=== PATIENT | female | born 1990 | race African-American/Black ===

== ENCOUNTER 2020-02-19 13:13 | Inpatient (IN) | payer OTHER ==
[~2020-02-19 13:13] MED LIST: KEFLEX500 MG PO
[2020-02-19 14:10] LABS: BASOPHIL 0.2 % (0-2); EOSINOPHIL 0.2 % (0-5); HCT 36.9 % (37.0-47.0); HGB 10.8 g/dl (12.5-16.0); LYMPHOCYTE 22.1 % (15-48); MCH 24.4 pg (25.0-31.0); MCHC 29.3 g/dL (32.0-36.0); MCV 83.5 fL (78.0-100.0); MPV 11.8 fL (6.0-9.5); NEUTROPHIL 66.9 % (41-80); NRBC 0.6; PLT 204 K/uL (150-400); RBC 4.42 M/uL (4.20-5.40); RDW 17.6 % (11.5-14.0); WBC 6.3 K/uL (4.0-10.5)
[2020-02-19 14:26] LABS: ALBUMIN 2.9 g/dL (3.4-5.0); BILIRUBIN - TOTAL 0.8 mg/dL (0.2-1.0); BUN/CREAT RATIO (CALC) 8.3 RATIO; CREATININE 0.72 mg/dL (0.51-0.95); GLOBULIN (CALCULATION) 5.4 g/dL; POTASSIUM 3.8 mmol/L (3.5-5.1); TOTAL PROTEIN 8.3 g/dL (6.4-8.2)
[2020-02-19 14:36] LABS: LACTIC ACID 0.3 mmol/L (0.4-1.9)
[2020-02-19 16:05] LABS: INR 1.11 (0.9-1.2); PROTHROMBIN TIME 13.6 SECONDS (11.4-13.6)
[2020-02-19 16:06] LABS: PTT 39.9 SECONDS (22.2-34.7)
[2020-02-19 16:21] LABS: PRO-BNP 17 pg/mL (<125)
[2020-02-20 09:46] LABS: BASOPHIL 0.2 % (0-2); EOSINOPHIL 0 % (0-5); HGB 11.4 g/dl (12.5-16.0); MCH 24.8 pg (25.0-31.0); MCHC 28.5 g/dL (32.0-36.0); MONOCYTE 3.2 % (0-12); MPV 11.7 fL (6.0-9.5); NEUTROPHIL 68.9 % (41-80); NRBC 0.9; PLT 204 K/uL (150-400); RDW 17.8 % (11.5-14.0); WBC 4.4 K/uL (4.0-10.5)
[2020-02-20 10:02] LABS: BUN/CREAT RATIO (CALC) 13.6 RATIO; CREATININE 0.59 mg/dL (0.51-0.95); POTASSIUM 4.6 mmol/L (3.5-5.1)
--- NOTE | 2020-02-22 01:29 | NUR ---
PT C/O SOA. RESP NOTIFIED, HARDNESS INSPECTOR NOTIFIED. BREATHING TREATMENT GIVEN. PT C/O HEADACHE. PRN TYLENOL GIVEN. PT IV D/CD DUE TO INFILTRATION, CATH INTACT WHEN REMOVED. NEW IV STARTED IN LEFT ARM. 2 ATTEMPTS. 20 GUAGE. FLUSHES WITH OUT DIFFICULTY, DRESSING APPLIED. WILL CONTINUE TO MONITOR
--- NOTE | 2020-02-22 01:48 | NUR ---
PT SATS 85-87% THIS NURSE WENT INTO PT ROOM, PT HAD VENTURI MASK OFF AT THIS TIME. THIS NURSE REMINDED PT TO KEEP VENTURI MASK ON AND EDUCATED IMPORTANCE OF VENTURI MASK TO HELP BREATHE. PT VERBALIZED UNDERSTANDING.
--- NOTE | 2020-02-22 17:47 | NUR ---
MD DR. BRAMBILA NOTIFIED OF PATIENT HEART RATE OF 146, MD STATED TO WATCH PATIENT
[2020-02-23 04:42] LABS: BASOPHIL 0.1 % (0-2); EOSINOPHIL 0 % (0-5); HCT 36.5 % (37.0-47.0); LYMPHOCYTE 19.5 % (15-48); MCH 24.3 pg (25.0-31.0); MCHC 27.4 g/dL (32.0-36.0); MCV 88.8 fL (78.0-100.0); MONOCYTE 7.9 % (0-12); MPV 11.6 fL (6.0-9.5); NEUTROPHIL 71.8 % (41-80); NRBC 0.3; PLT 265 K/uL (150-400); RBC 4.11 M/uL (4.20-5.40); RDW 17.2 % (11.5-14.0)
[2020-02-23 04:43] LABS: WBC 7.6 K/uL (4.0-10.5)
[2020-02-23 05:17] LABS: ALBUMIN 2.8 g/dL (3.4-5.0); BILIRUBIN - TOTAL 0.4 mg/dL (0.2-1.0); C-REACTIVE PROTEIN 5.6 mg/dL (<=0.90); CREATININE 0.54 mg/dL (0.51-0.95); GLOBULIN (CALCULATION) 5.2 g/dL; POTASSIUM 4.6 mmol/L (3.5-5.1)
--- NOTE | 2020-02-23 13:58 | NUR ---
1335 PATIENT HR 136, O2 RANGING FROM 62% TO 75%, THIS RN ENTERED PATIENTS ROOM AND PATIENT IN BED WITH 6L NC ON. PATIENT STATED SHE JUST USED THE [facility]. TI RN INSTRUCTED PATIENT TO TAKE DEEP BREATHS. PATIENT'S O2 86-88%. PATIENT PLACED ON 50% VENTI MASK, O2 90% HR 96. MD BRAMBILA NOTIFIED OF O2 AND HR. STATED "OK." PATIENT INSTRUCTED TO CALL FOR ASSISTANCE BEFORE GETTING OUT OF BED DUE TO DECREASED O2 SAT WHEN AMBULATING. PATIENT VERBALIZED UNDERSTANDING
--- NOTE | 2020-02-23 16:12 | NUR ---
1435 O2 88-89% ON 50% VENTI MASK. MD BRAMBILA NOTIFIED. CXR AND ABG ORDERED, STATED "I WILL TRANSFER HER TO [facility] WHEN A BED BECOMES AVAILABLE"
[2020-02-24 04:37] LABS: BASOPHIL 0.2 % (0-2); EOSINOPHIL 0.1 % (0-5); LYMPHOCYTE 21.4 % (15-48); MCH 24.6 pg (25.0-31.0); MCHC 28.6 g/dL (32.0-36.0); MCV 86.2 fL (78.0-100.0); MONOCYTE 7.8 % (0-12); MPV 11.4 fL (6.0-9.5); NEUTROPHIL 69.5 % (41-80); NRBC 0; PLT 275 K/uL (150-400); RBC 4.06 M/uL (4.20-5.40); RDW 16.9 % (11.5-14.0); WBC 8.2 K/uL (4.0-10.5)
[2020-02-24 05:03] LABS: ALBUMIN 2.9 g/dL (3.4-5.0); BILIRUBIN - TOTAL 0.6 mg/dL (0.2-1.0); BUN/CREAT RATIO (CALC) 13.6 RATIO; C-REACTIVE PROTEIN 3.3 mg/dL (<=0.90); CREATININE 0.59 mg/dL (0.51-0.95); POTASSIUM 4.2 mmol/L (3.5-5.1); TOTAL PROTEIN 7.9 g/dL (6.4-8.2)
[2020-02-25 06:44] LABS: BASOPHIL 0.1 % (0-2); EOSINOPHIL 0.3 % (0-5); HCT 36.1 % (37.0-47.0); HGB 10.2 g/dl (12.5-16.0); LYMPHOCYTE 22.5 % (15-48); MCH 23.9 pg (25.0-31.0); MCHC 28.3 g/dL (32.0-36.0); MCV 84.7 fL (78.0-100.0); MPV 11.8 fL (6.0-9.5); NEUTROPHIL 67.6 % (41-80); NRBC 0; PLT 296 K/uL (150-400); RBC 4.26 M/uL (4.20-5.40); RDW 16.9 % (11.5-14.0); WBC 9.2 K/uL (4.0-10.5)
[2020-02-25 07:22] LABS: ALBUMIN 2.7 g/dL (3.4-5.0); BILIRUBIN - TOTAL 0.7 mg/dL (0.2-1.0); BUN/CREAT RATIO (CALC) 17.2 RATIO; C-REACTIVE PROTEIN 2.2 mg/dL (<=0.90); CREATININE 0.58 mg/dL (0.51-0.95); GLOBULIN (CALCULATION) 4.8 g/dL; POTASSIUM 4.2 mmol/L (3.5-5.1); TOTAL PROTEIN 7.5 g/dL (6.4-8.2)
[2020-02-25 09:08] LABS: IRON % SATURATION 23.7 %SAT (20-50)
--- NOTE | 2020-02-25 17:09 | NUR ---
02/24 Discharge is anticipated for 02/25. Referrals have been made to [facility] for trilogy and 02 at 5 L with an oximizer. Please remind patient to call [facility] upon arrival at home for delivery of concentrator and trilogy. Please send oximizer home with patient. - Report given to SISSY Ordoñez, YEMI.
--- NOTE | 2020-02-26 11:37 | NUR ---
02/26/20 02 has been delivered. Patient was informed of need to see Tiffany Stevens, PCP, before [facility] can see her. Report given to Dr. Purcell. Tootie, RN, will assist patient is scheduling PCP appointment.
[2020-02-26] MEDS ORDERED: DEXAMETHASONE 2M2 MG PO (12:54)
[2020-02-26] MEDS ORDERED: PROVENTIL HFA6.7 GM INH (12:54)
--- NOTE | 2020-02-26 15:45 | NUR ---
PT DISCHARGED VIA WHEELCHAIR WITH BOYFRIEND. 2 OXYGEN TANKS WITH HER. LEFT ON 5L OXIMIZER. GIVEN INSTRUCTIONS AND MEDS AT [facility].
== END 2020-02-26 15:25 | disposition home health service (06) | DRG 177 ==
LOC: FER 13:13 → FMS 17:27 → FTCU 02-23 16:57 → FICU 02-24 04:54 → FTCU 02-24 12:25
PROVIDERS: Emergency Medicine; Internal Medicine; Nurse Practitioner; ADMIT Internal Medicine
PROC: 8E0ZXY6 Isolation (ICD-10-PCS; principal; 2020-02-19)
PROC: XW033E5 Introduction of Remdesivir Anti-infective into Peripheral Vein, Percutaneous Approach, New Technology Group 5 (ICD-10-PCS; 2020-02-19)
DX: U07.1 COVID-19 (principal); J12.82 Pneumonia due to coronavirus disease 2019; J96.01 Acute respiratory failure with hypoxia; J96.02 Acute respiratory failure with hypercapnia; Z68.45 Body mass index [BMI] 70 or greater, adult; E66.01 Morbid (severe) obesity due to excess calories; Z86.711 Personal history of pulmonary embolism; Z79.01 Long term (current) use of anticoagulants; G47.33 Obstructive sleep apnea (adult) (pediatric); Z98.51 Tubal ligation status; Z98.890 Other specified postprocedural states
CPT/HCPCS: 36415; 36600; 71045; 71275; 80048; 80053; 82607; 82728; 82803; 83540; 83550; 83605; 83615; 83880; 84443; 84484; 85025; 85379; 85610; 85730; 86140; 87040; 93005; 94010; 94640; 94660; 94668; 96374; 96375; C9399; J0456; J0696; J1100; J1650; J1940; J2405; J7030; J7050; J8540; Q0169; Q9967; U0002

== ENCOUNTER 2020-09-21 21:34 | Emergency (ER) | payer OTHER ==
[~2020-09-21 21:34] MED LIST changes: +DEXAMETHASONE 2M2 MG PO; +PROVENTIL HFA6.7 GM INH
[2020-09-21 22:01] LABS: BASOPHIL 0.3 % (0-2); EOSINOPHIL 0.9 % (0-5); HCT 41.8 % (37.0-47.0); HGB 11.1 g/dl (12.5-16.0); LYMPHOCYTE 10.6 % (15-48); MCH 21.9 pg (25.0-31.0); MCHC 26.6 g/dL (32.0-36.0); MCV 82.6 fL (78.0-100.0); MONOCYTE 8.3 % (0-12); NRBC 0.5; PLT 237 K/uL (150-400); RBC 5.06 M/uL (4.20-5.40); WBC 11.6 K/uL (4.0-10.5)
[2020-09-21 22:22] LABS: LACTIC ACID 1.2 mmol/L (0.4-1.9)
[2020-09-21 22:28] LABS: ALBUMIN 3.2 g/dL (3.4-5.0); BILIRUBIN - TOTAL 0.9 mg/dL (0.2-1.0); BUN/CREAT RATIO (CALC) 11.6 RATIO; CREATININE 0.86 mg/dL (0.51-0.95); POTASSIUM 4.3 mmol/L (3.5-5.1); TOTAL PROTEIN 8.2 g/dL (6.4-8.2)
[2020-09-22 01:11] LABS: BILIRUBIN NEGATIVE (NEGATIVE); BLOOD TRACE-INTACT Ery/uL (NEGATIVE); CLARITY CLEAR (CLEAR); COLOR YELLOW (YELLOW); GLUCOSE (U) NORMAL (NORMAL); LEUKOCYTES NEGATIVE Leu/uL (NEGATIVE); NITRITE NEGATIVE (NEGATIVE); PROTEIN 3+ mg/dL (NEGATIVE); SPECIFIC GRAVITY >=1.030 (1.001-1.030)
[2020-09-22 01:30] LABS: AMORPHOUS URATES CRYSTALS MODERATE; BACTERIA 1+; GRANULAR CASTS MODERATE; MUCOUS MODERATE; STARCH GRANULES NOT PRESENT
== END 2020-09-22 07:53 | disposition other institution (70) ==
LOC: FER 21:34
PROVIDERS: Emergency Medicine Emergency Medical Services
DX: J18.9 Pneumonia, unspecified organism (principal); J96.01 Acute respiratory failure with hypoxia; R00.0 Tachycardia, unspecified; J44.9 Chronic obstructive pulmonary disease, unspecified; Z20.822 Contact with and (suspected) exposure to COVID-19
CPT/HCPCS: 31500; 36415; 36600; 71045; 80053; 81001; 82803; 83605; 83880; 84145; 84484; 85025; 85379; 87040; 87088; 93005; 94002; 94640; 94664; 96365; 96366; 96367; 96368; 96372; 96375; J0456; J0696; J1650; J1940; J2250; J2704; J2930; J3010; J3475; J7030; J7050; U0002

== ENCOUNTER 2020-12-15 19:36 | Inpatient (IN) | payer OTHER ==
[~2020-12-15] VITALS: Ht 162.6 cm; Wt 204.3 kg
[2020-12-15 20:43] LABS: BASOPHIL 0.3 % (0-2); EOSINOPHIL 1.1 % (0-5); HCT 37.3 % (37.0-47.0); HGB 10.2 g/dl (12.5-16.0); LYMPHOCYTE 17.3 % (15-48); MCH 24.5 pg (25.0-31.0); MCHC 27.3 g/dL (32.0-36.0); MCV 89.4 fL (78.0-100.0); MONOCYTE 7.2 % (0-12); MPV 10.7 fL (6.0-9.5); NEUTROPHIL 73.6 % (41-80); NRBC 0.4; PLT 268 K/uL (150-400); RBC 4.17 M/uL (4.20-5.40); RDW 20.8 % (11.5-14.0); WBC 11.4 K/uL (4.0-10.5)
[2020-12-15 21:28] LABS: CORONAVIRUS 2019 SARS-COV-2 NEGATIVE (NEGATIVE); INFLUENZA A NAA NEGATIVE (NEGATIVE)
[2020-12-15 21:52] LABS: ALBUMIN 3.5 g/dL (3.4-5.0); BILIRUBIN - TOTAL 0.8 mg/dL (0.2-1.0); BUN/CREAT RATIO (CALC) 7.5 RATIO; C-REACTIVE PROTEIN 3.5 mg/dL (<=0.90); CREATININE 0.67 mg/dL (0.51-0.95); GLOBULIN (CALCULATION) 4.7 g/dL; TOTAL PROTEIN 8.2 g/dL (6.4-8.2)
[2020-12-15 23:16] LABS: BILIRUBIN NEGATIVE (NEGATIVE); BLOOD NEGATIVE Ery/uL (NEGATIVE); CLARITY CLEAR (CLEAR); COLOR YELLOW (YELLOW); GLUCOSE (U) NORMAL (NORMAL); LEUKOCYTES NEGATIVE Leu/uL (NEGATIVE); NITRITE NEGATIVE (NEGATIVE); PROTEIN TRACE (LOW) mg/dL (NEGATIVE); UROBILINOGEN 0.2 mg/dL (0.2-1.0)
[2020-12-16] MEDS ORDERED: LASIX40 MG PO (00:56)
[2020-12-16 05:56] LABS: HCT 38.1 % (37.0-47.0); HGB 10.2 g/dl (12.5-16.0); MCH 24.4 pg (25.0-31.0); MCHC 26.8 g/dL (32.0-36.0); MCV 91.1 fL (78.0-100.0); MPV 11.4 fL (6.0-9.5); RBC 4.18 M/uL (4.20-5.40); RDW 20.5 % (11.5-14.0); WBC 11.3 K/uL (4.0-10.5)
[2020-12-16 06:17] LABS: BUN/CREAT RATIO (CALC) 8.1 RATIO; CREATININE 0.62 mg/dL (0.51-0.95); POTASSIUM 5.3 mmol/L (3.5-5.1)
--- NOTE | 2020-12-16 14:53 | NUR ---
12/16/20 Ms. Kirk lives at home with her 3 children and s.o. She has 02 at 5 L with oximizer. [facility] reports patient to have declined the trilogy. According to [facility], patient reported to have a C-PAP which she wasn't using. Patient would be required to have a sleep study in order to qualifiy for a Bi-PAP. [facility] did not provide the C-PAP.
[2020-12-18 06:55] LABS: HCT 32.9 % (37.0-47.0); HGB 9.2 g/dl (12.5-16.0); MCH 24.4 pg (25.0-31.0); MCV 87.3 fL (78.0-100.0); MPV 10.6 fL (6.0-9.5); RBC 3.77 M/uL (4.20-5.40); WBC 11.6 K/uL (4.0-10.5)
[2020-12-18 07:15] LABS: BUN/CREAT RATIO (CALC) 23.8 RATIO; CREATININE 0.63 mg/dL (0.51-0.95); POTASSIUM 4.4 mmol/L (3.5-5.1)
--- NOTE | 2020-12-18 17:38 | NUR ---
12/18/20 An Astral machine has been delivered (trilogys are on recall) to patient's room. Please notify [facility] at [phone] if patient discharges over the weekend.
[2020-12-19 06:54] LABS: HCT 34.6 % (37.0-47.0); HGB 9.9 g/dl (12.5-16.0); MCH 24.5 pg (25.0-31.0); MCHC 28.6 g/dL (32.0-36.0); MCV 85.6 fL (78.0-100.0); RBC 4.04 M/uL (4.20-5.40); RDW 19.9 % (11.5-14.0); WBC 12.4 K/uL (4.0-10.5)
[2020-12-19 07:13] LABS: BUN/CREAT RATIO (CALC) 25.4 RATIO; CREATININE 0.59 mg/dL (0.51-0.95); POTASSIUM 4.3 mmol/L (3.5-5.1)
[2020-12-19] MEDS ORDERED: CEFDINIR300 MG PO (10:13)
[2020-12-19] MEDS ORDERED: AZITHROMYCIN250 MG PO (10:15)
[2020-12-19] MEDS ORDERED: MEDROL 4MG DOSEP4 MG PO (10:16)
--- NOTE | 2020-12-19 18:13 | NUR ---
12/19/20 [facility] was notified of discharge.
== END 2020-12-19 11:25 | disposition home or self-care (01) | DRG 193 ==
LOC: FER 19:36 → FTCU 23:30
PROVIDERS: Hospitalist; Nurse Practitioner; Nurse Practitioner Family; ADMIT Internal Medicine
DX: J18.9 Pneumonia, unspecified organism (principal); J96.21 Acute and chronic respiratory failure with hypoxia; J96.22 Acute and chronic respiratory failure with hypercapnia; J44.0 Chronic obstructive pulmonary disease with (acute) lower respiratory infection; Z68.45 Body mass index [BMI] 70 or greater, adult; Z20.822 Contact with and (suspected) exposure to COVID-19; E66.01 Morbid (severe) obesity due to excess calories; G47.33 Obstructive sleep apnea (adult) (pediatric); Z86.16 Personal history of COVID-19; Z79.899 Other long term (current) drug therapy; Z86.711 Personal history of pulmonary embolism; Z79.01 Long term (current) use of anticoagulants; Z87.01 Personal history of pneumonia (recurrent); Z98.51 Tubal ligation status; Z98.890 Other specified postprocedural states; Z87.891 Personal history of nicotine dependence; Z82.49 Family history of ischemic heart disease and other diseases of the circulatory system; Z84.1 Family history of disorders of kidney and ureter
CPT/HCPCS: 36415; 36600; 71045; 71275; 80048; 80053; 81003; 82728; 82803; 83605; 84145; 85025; 85379; 86140; 94010; 94640; 94660; 94664; J0456; J0696; J1650; J2930; J7030; J7050; Q9967; U0002

== ENCOUNTER 2021-01-03 20:44 | Emergency (ER) | payer OTHER ==
[~2021-01-03 20:44] MED LIST changes: +AZITHROMYCIN250 MG PO; +CEFDINIR300 MG PO; +LASIX40 MG PO; +MEDROL 4MG DOSEP4 MG PO
[2021-01-03 22:37] LABS: BASOPHIL 0.2 % (0-2); EOSINOPHIL 2.9 % (0-5); HCT 35.8 % (37.0-47.0); HGB 9.9 g/dl (12.5-16.0); LYMPHOCYTE 24.3 % (15-48); MCH 24.5 pg (25.0-31.0); MCHC 27.7 g/dL (32.0-36.0); MCV 88.6 fL (78.0-100.0); MONOCYTE 16.1 % (0-12); MPV 10.3 fL (6.0-9.5); NEUTROPHIL 56.3 % (41-80); NRBC 0; PLT 169 K/uL (150-400); RBC 4.04 M/uL (4.20-5.40); RDW 18.9 % (11.5-14.0); WBC 6.2 K/uL (4.0-10.5)
[2021-01-03 23:04] LABS: BILIRUBIN - TOTAL 0.5 mg/dL (0.2-1.0); BUN/CREAT RATIO (CALC) 5.5 RATIO; CREATININE 0.73 mg/dL (0.51-0.95); GLOBULIN (CALCULATION) 4.3 g/dL; POTASSIUM 3.7 mmol/L (3.5-5.1); TOTAL PROTEIN 7.3 g/dL (6.4-8.2)
[2021-01-03 23:09] LABS: LACTIC ACID 1.4 mmol/L (0.4-1.9)
[2021-01-03 23:12] LABS: PRO-BNP 94 pg/mL (<125)
[2021-01-03 23:27] LABS: CORONAVIRUS 2019 SARS-COV-2 NEGATIVE (NEGATIVE); INFLUENZA A NAA NEGATIVE (NEGATIVE)
[2021-01-04] MEDS ORDERED: PROVENTIL HFA6.7 GM INH (00:51)
[2021-01-04] MEDS ORDERED: LEVAQUIN750 MG PO (00:51)
[2021-01-04] MEDS ORDERED: MEDROL 4MG DOSEP4 MG PO (00:51)
[2021-01-04] MEDS ORDERED: XARELTO15 MG PO (00:51)
== END 2021-01-04 01:19 | disposition home or self-care (01) ==
LOC: FER 20:44
PROVIDERS: Emergency Medicine Emergency Medical Services
DX: J18.9 Pneumonia, unspecified organism (principal); Z20.822 Contact with and (suspected) exposure to COVID-19
CPT/HCPCS: 36415; 36600; 71275; 80053; 82803; 83605; 83880; 84145; 84484; 85025; 85379; 93005; J2930; Q9967; U0002

== ENCOUNTER 2021-08-05 18:27 | Emergency (ER) | payer OTHER ==
[~2021-08-05 18:27] MED LIST changes: +LEVAQUIN750 MG PO; +XARELTO15 MG PO
[2021-08-05 19:53] LABS: BASOPHIL 0.4 % (0-2); EOSINOPHIL 1.4 % (0-5); HCT 35.1 % (37.0-47.0); HGB 10.5 g/dl (12.5-16.0); LYMPHOCYTE 24.4 % (15-48); MCH 24.4 pg (25.0-31.0); MCHC 29.9 g/dL (32.0-36.0); MCV 81.6 fL (78.0-100.0); MPV 11.2 fL (6.0-9.5); NEUTROPHIL 64.7 % (41-80); NRBC 0; PLT 233 K/uL (150-400); RDW 19.1 % (11.5-14.0)
[2021-08-05 20:11] LABS: ALBUMIN 3.5 g/dL (3.4-5.0); BILIRUBIN - TOTAL 0.4 mg/dL (0.2-1.0); BUN/CREAT RATIO (CALC) 10.1 RATIO; CREATININE 0.79 mg/dL (0.51-0.95); GLOBULIN (CALCULATION) 4.6 g/dL; TOTAL PROTEIN 8.1 g/dL (6.4-8.2)
[2021-08-05] MEDS ORDERED: VIBRAMYCIN100 MG PO (21:13)
== END 2021-08-05 21:20 | disposition home or self-care (01) ==
LOC: FER 18:27
PROVIDERS: Internal Medicine
DX: L02.211 Cutaneous abscess of abdominal wall (principal)
CPT/HCPCS: 36415; 80053; 84145; 85025; 87070; 87205